=== PATIENT | female | born 1960 | race Caucasian/White ===

== ENCOUNTER 2022-06-09 07:05 | Emergency (ER) | payer BC, OTHER ==
[~2022-06-09] VITALS: Ht 160 cm; Wt 72.6 kg
[2022-06-09] MEDS ORDERED: DEXAMETHASONE 4 MG TAB PO STA (07:16)
[2022-06-09] MEDS ORDERED: LIDOCAINE 4% PATCH TP STA (07:16)
[2022-06-09] MEDS ORDERED: KETOROLAC TROMETHAMINE 30 MG/ML VIAL IM STA (07:16)
[2022-06-09] MEDS ORDERED: CYCLOBENZAPRINE5 MG PO (07:20)
[2022-06-09] MEDS ORDERED: LIDOCAINE1 EACH EXT (07:20)
[2022-06-09] MEDS ORDERED: NAPROXEN250 MG PO (07:20)
[2022-06-09] MEDS ORDERED: ACETAMINOPHEN 325 MG TAB PO ONE (07:30)
== END 2022-06-09 09:03 | disposition home or self-care (01) ==
LOC: ER 07:19
DX: M54.50 Low back pain, unspecified (principal); W01.0XXA Fall on same level from slipping, tripping and stumbling without subsequent striking against object, initial encounter; Y93.01 Activity, walking, marching and hiking; Y92.89 Other specified places as the place of occurrence of the external cause; I10 Essential (primary) hypertension
CPT/HCPCS: 72100; 99284; J1885; J8540

== ENCOUNTER 2024-04-19 22:23 | Emergency (ER) | payer BC, OTHER ==
[~2024-04-19] VITALS: Ht 160 cm; Wt 67.1 kg
[~2024-04-19 22:23] MED LIST: CYCLOBENZAPRINE5 MG PO; LIDOCAINE1 EACH EXT; NAPROXEN250 MG PO
[2024-04-19 22:30] VITALS: PULSE 66; RESP 16; TEMP 99
[2024-04-19 23:21] LABS: BASOPHILS % 0.3 % (0.0-1.0); EOSINOPHILS # (AUTO) 0.1 (0.0-0.4); EOSINOPHILS % 1.1 % (0.0-6.0); HEMATOCRIT 39.8 % (34.2-44.1); HEMOGLOBIN 12.5 g/dL (12.0-16.0); LYMPHOCYTES # (AUTO) 4.4 (1.0-3.2); LYMPHOCYTES % 37.8 % (18.0-39.1); MEAN CORPUSCULAR HEMOGLOBIN 32.6 pg (28-32); MEAN CORPUSCULAR HGB CONC 31.4 g/dL (31-35); MEAN CORPUSCULAR VOLUME 103.6 fL (81-99); MONOCYTES # (AUTO) 0.8 (0.2-0.8); MONOCYTES % 6.5 % (4.4-11.3); NEUTROPHILS # (AUTO) 6.2 (2.1-6.9); PLATELET COUNT 320 x10e3/uL (140-360); RED BLOOD COUNT 3.84 x10e6/uL (3.6-5.1); RED CELL DISTRIBUTION WIDTH 13.6 % (11.7-14.4); WHITE BLOOD COUNT 11.52 x10e3/uL (4.8-10.8)
[2024-04-19 23:28] LABS: STREPTOCOCCUS GRP A ANTIGEN NEGATIVE (NEGATIVE)
[2024-04-19 23:38] LABS: CORONAVIRUS COVID-19 AG NEGATIVE (NEGATIVE); INFLUENZA A AG NEGATIVE (NEGATIVE); INFLUENZA B AG NEGATIVE (NEGATIVE)
[2024-04-19 23:41] LABS: ALBUMIN 3.4 g/dL (3.5-5.0); ALBUMIN/GLOBULIN RATIO 0.9 (0.8-2.0); ANION GAP 15.6 mmol/L (8-16); BILIRUBIN,TOTAL 0.3 mg/dL (0.2-1.2); CALCIUM 9.3 mg/dL (8.4-10.2); CREATININE, SERUM 1.01 mg/dL (0.57-1.11); POTASSIUM 3.6 mmol/L (3.5-5.1); TOTAL PROTEIN 7.2 g/dL (6.5-8.1)
[2024-04-19] MEDS: DICYCLOMINE HCL 20 MG/2 ML VIAL IM ONE (23:51)
[2024-04-19] MEDS: ONDANSETRON HCL INJ 2MG/ML 2ML 2 MG/ML VIAL IV STA (23:51)
[2024-04-19] MEDS: SODIUM CHLORIDE 0.9% 1000ML 1,000 ML IV STA (23:52)
[2024-04-20] MEDS ORDERED: DOXYCYCLINE HY100 MG PO (00:33)
[2024-04-20] MEDS ORDERED: ONDANSETRON ODT4 MG SL (00:33)
[2024-04-20 00:37] VITALS: BP 134/62; PULSE 52; RESP 16; TEMP 97.9; O2SAT 100
== END 2024-04-20 00:46 | disposition home or self-care (01) ==
LOC: ER 23:15
DX: R50.9 Fever, unspecified (principal); B34.9 Viral infection, unspecified; R19.7 Diarrhea, unspecified; R51.9 Headache, unspecified; I10 Essential (primary) hypertension; Z11.52 Encounter for screening for COVID-19
CPT/HCPCS: 36415; 80053; 83518; 83690; 85025; 87070; 87428; 99284; J0500; J2405; J2470; J7030